=== PATIENT | female | born 1975 | race Hispanic/Latino ===

== ENCOUNTER 2020-01-04 00:45 | Emergency (ER) | payer SELFPAY ==
[2020-01-04 01:26] LABS: #Basophils 0.1 thou/uL (0.0-0.2); #Lymphocytes 1.8 thou/uL (1.20-3.40); #Monocytes 0.3 thou/uL (0.11-0.59); %Basophils 1.3 % (0.0-1.0); %Eosinophils 1.2 % (0.0-10.0); %Lymphocytes 42.2 % (21.0-51.0); %Monocytes 8.1 % (0.0-10.0); %Neutrophils 47.3 % (42.0-75.0); Hemoglobin 11.3 g/dL (12.0-16.0); Mean Corpuscular Hemoglobin 29.9 pg (27.0-31.0); Mean Corpuscular Volume 87.8 fL (78.0-98.0); Mean Platelet Volume 6.7 fL (7.4-10.4); Platelet Count 205 thou/uL (130-400); RBC Distribution Width 11.3 % (11.5-14.5); Red Blood Cell (RBC) Count 3.78 mill/uL (4.20-5.40); White Blood Cell (WBC) Count 4.3 thou/uL (4.8-10.8)
[2020-01-04 01:48] LABS: ALT (SGPT) 17 U/L (8-55); AST (SGOT) 17 U/L (5-34); Albumin 3.8 g/dL (3.5-5.0); Alkaline Phosphatase 101 U/L (40-110); Anion Gap 14 mmol/L (10-20); BUN (Urea Nitrogen) 13 mg/dL (7.0-18.7); Bilirubin, Total 0.3 mg/dL (0.2-1.2); Calc. Creatinine Clearance 0 mL/min (70-130); Calcium 8.8 mg/dL (7.8-10.44); Carbon Dioxide 21 mmol/L (22-29); Chloride 109 mmol/L (98-107); Estimated GFR-MDRD 82; Globulin 3.4 g/dL (2.4-3.5); Glucose 145 mg/dL (70-105); Potassium 3.7 mmol/L (3.5-5.1); Protein, Total 7.2 g/dL (6.0-8.3); Sodium 140 mmol/L (136-145)
--- NOTE | 2020-01-04 07:39 | RAD ---
Portable frontal chest radiograph: 01/04/2020 COMPARISON: None HISTORY: Chest pain/pressure FINDINGS: Lungs are clear. Heart and mediastinal contours appear within normal limits. IMPRESSION: No acute findings.
== END 2020-01-04 02:02 | disposition home or self-care (01) ==
LOC: ERS 00:45
DX: F43.0 Acute stress reaction (principal); F41.9 Anxiety disorder, unspecified; R55 Syncope and collapse
CPT/HCPCS: 36415; 71045; 80053; 85025; 93005

== ENCOUNTER 2020-01-15 23:17 | Emergency (ER) | payer SELFPAY ==
[2020-01-15] MEDS ORDERED: Boostrix 0.5 ML (Tdap) VIAL ONE (23:43)
--- NOTE | 2020-01-15 23:48 | CT ---
CT BRAIN: Date: 01/15/2020 PROVIDED CLINICAL HISTORY: None. FINDINGS: The ventricular system appears normal in size and morphology. There is no evidence for intracranial h emorrhage or mass effect. The extracranial soft tissues and osseous structures demonstrate an unremar kable CT appearance. IMPRESSION: No evidence for intracranial hemorrhage or mass effect. POS: [facility]
--- NOTE | 2020-01-15 23:51 | CT ---
"CT CERVICAL SPINE: Date: 01/15/2020 PROVIDED CLINICAL HISTORY: None. FINDINGS: |No evidence for fracture or traumatic subluxation. No prevertebral soft tissue swelling apparent. Vi sualized lung apices appear clear. IMPRESSION: No evidence for fracture or traumatic subluxation. POS: [facility]"
== END 2020-01-16 00:35 | disposition home or self-care (01) ==
LOC: ERS 23:17
DX: S06.9X1A Unspecified intracranial injury with loss of consciousness of 30 minutes or less, initial encounter (principal); S00.81XA Abrasion of other part of head, initial encounter; S60.410A Abrasion of right index finger, initial encounter; F10.129 Alcohol abuse with intoxication, unspecified; W18.30XA Fall on same level, unspecified, initial encounter
CPT/HCPCS: 70450; 72125; 90471; 90715

== ENCOUNTER 2022-02-15 17:38 | Emergency (ER) | payer SELFPAY ==
[2022-02-15] MEDS ORDERED: Ketorolac Tromethamine 30 MG/ML VIAL ONE (18:14)
[2022-02-15] MEDS ORDERED: Dexamethasone 10 MG/ML VIAL ONE (18:14)
[2022-02-15] MEDS ORDERED: Fentanyl 100 MCG/2 ML VIAL ONE (18:14)
== END 2022-02-15 19:15 | disposition home or self-care (01) ==
LOC: ERS 17:38
DX: M62.838 Other muscle spasm (principal)
CPT/HCPCS: 96372; 99283; J1100; J1885; J3010